=== PATIENT | male | born 1975 | race Caucasian/White ===

== ENCOUNTER 2017-08-03 12:28 | Emergency (ER) | payer OTHER ==
[~2017-08-03] VITALS: Ht 180.3 cm; Wt 79.4 kg
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
[2017-08-03] MEDS ORDERED: IBUPROFEN 600 MG TABLET PO ONE ×2 (14:30→14:37)
[2017-08-03] MEDS ORDERED: oxyCODONE/APAP (5/325 MG) 1 UDTAB TABLET PO ONE (14:30)
[2017-08-03] MEDS ORDERED: oxyCODONE/APAP (5/325 MG) 1 UDTAB TABLET ONE (14:37)
--- NOTE | 2017-08-03 14:56 | NUR ---
Patient discharged to home in stable condition. Written and verbal after care instructions given. Patient verbalizes understanding of instruction. Crutches dispensed. Pt instructed on proper use of crutches. Patient able to demonstrate correct use of crutches.
[2017-08-03 14:58] VITALS: BP 155/90
== END 2017-08-03 14:58 | disposition home or self-care (01) ==
LOC: ER 12:39
DX: S80.01XA Contusion of right knee, initial encounter (principal); M25.461 Effusion, right knee; I10 Essential (primary) hypertension; F32.9 Major depressive disorder, single episode, unspecified; F43.10 Post-traumatic stress disorder, unspecified; F17.200 Nicotine dependence, unspecified, uncomplicated; V18.4XXA Pedal cycle driver injured in noncollision transport accident in traffic accident, initial encounter; Y93.89 Activity, other specified; Y92.413 State road as the place of occurrence of the external cause; Y99.8 Other external cause status
CPT/HCPCS: 73562; A4606; Z7610